=== PATIENT | male | born 1945 | race Caucasian/White ===

== ENCOUNTER 2021-10-07 11:21 | Emergency (ER) | payer MEDICARE, BC ==
[2021-10-07 13:25] LABS: Bilirubin Negative (Negative); Blood, Urine Negative (Negative); Clarity Clear (Clear); Glucose, Urine (Dipstick) 500 mg/dL (Negative); Ketone, Urine 20 mg/dL (Negative); Leukocyte Negative Leu/uL (Negative); Nitrite Negative (Negative); Protein, Urine (Dipstick) Negative (Neg-Trace); Specific Gravity, Urine 1.015 (1.002-1.036); Urobilinogen Normal mg/dL (Less than 2)
[2021-10-07] MEDS ORDERED: Fentanyl 100 MCG/2 ML VIAL ONE (13:27)
[2021-10-07 13:46] LABS: #Basophils 0.1 thou/uL (0.0-0.2); #Lymphocytes 1.3 thou/uL (1.20-3.40); #Monocytes 0.6 thou/uL (0.11-0.59); #Neutrophils 7.2 thou/uL (1.40-6.50); %Basophils 0.7 % (0.0-1.0); %Eosinophils 0.2 % (0.0-10.0); %Monocytes 6.4 % (0.0-10.0); %Neutrophils 78.7 % (42.0-75.0); Hemoglobin 18.7 g/dL (14.0-18.0); Mean Corpuscular HGB CONC 33.1 g/dL (32.0-36.0); Mean Corpuscular Hemoglobin 35.2 pg (27.0-31.0); Mean Platelet Volume 7.7 fL (7.4-10.4); Platelet Count 138 thou/uL (130-400); RBC Distribution Width 12.4 % (11.5-14.5); Red Blood Cell (RBC) Count 5.32 mill/uL (4.70-6.10); White Blood Cell (WBC) Count 9.2 thou/uL (4.8-10.8)
[2021-10-07] MEDS ORDERED: ISOVUE-370 76%-LOCM 1 ML ONE (13:51)
[2021-10-07 13:57] LABS: MDiff Complete? YES; Macrocytosis SLIGHT = 6-15 cells (100X) (0-5/hpf); Platelet Morphology Comment Appears Adequate
[2021-10-07 13:58] LABS: Hemoglobin A1c 10.4 % (4.0-6.0)
[2021-10-07 14:08] LABS: ALT (SGPT) 20 U/L (8-55); AST (SGOT) 23 U/L (5-34); Albumin 4.7 g/dL (3.4-4.8); Alkaline Phosphatase 68 U/L (40-110); Anion Gap 19 mmol/L (10-20); BUN (Urea Nitrogen) 30 mg/dL (8.4-25.7); Bilirubin, Total 1.5 mg/dL (0.2-1.2); CK (CPK) 400 U/L (30-200); Calc. Creatinine Clearance 0 mL/min (70-130); Calcium 9.9 mg/dL (7.8-10.44); Carbon Dioxide 26 mmol/L (23-31); Chloride 100 mmol/L (98-107); Glucose 184 mg/dL (83-110); Lipase Less than 4 U/L (8-78); Potassium 3.7 mmol/L (3.5-5.1); Protein, Total 8.7 g/dL (5.8-8.1); Sodium 141 mmol/L (136-145)
== END 2021-10-07 16:13 | disposition home or self-care (01) ==
LOC: ERS 11:21
DX: M54.41 Lumbago with sciatica, right side (principal); E86.0 Dehydration; E11.65 Type 2 diabetes mellitus with hyperglycemia; Z79.899 Other long term (current) drug therapy; Z79.84 Long term (current) use of oral hypoglycemic drugs; Z79.01 Long term (current) use of anticoagulants
CPT/HCPCS: 74177; 80053; 81003; 82010; 82550; 83036; 83690; 83880; 84484; 85025; 93005; 96374; J3010; Q9966

== ENCOUNTER 2022-11-22 22:55 | Emergency (ER) | payer MEDICARE, BC ==
[2022-11-22 23:57] LABS: #Eosinphils 0.1 thou/uL (0.0-0.7); #Monocytes 0.5 thou/uL (0.11-0.59); #Neutrophils 4.2 thou/uL (1.40-6.50); %Basophils 0.7 % (0.0-1.0); %Lymphocytes 20.3 % (21.0-51.0); %Monocytes 7.9 % (0.0-10.0); %Neutrophils 68.9 % (42.0-75.0); Hematocrit 44.5 % (42.0-52.0); Hemoglobin 15.1 g/dL (14.0-18.0); Mean Corpuscular HGB CONC 33.9 g/dL (32.0-36.0); Mean Corpuscular Hemoglobin 34.4 pg (27.0-31.0); Mean Corpuscular Volume 101.4 fl (78.0-98.0); Mean Platelet Volume 10.5 fL (7.4-10.4); Platelet Count 122 10x3/uL (130-400); RBC Distribution Width 13.2 % (11.5-14.5); Red Blood Cell (RBC) Count 4.39 mill/uL (4.70-6.10); White Blood Cell (WBC) Count 6.1 10x3/uL (4.8-10.8)
[2022-11-23 00:28] LABS: ALT (SGPT) 16 U/L (8-55); AST (SGOT) 17 U/L (5-34); Albumin 3.6 g/dL (3.4-4.8); Alkaline Phosphatase 62 U/L (40-110); Anion Gap 14 mmol/L (10-20); BUN (Urea Nitrogen) 17 mg/dL (8.4-25.7); Bilirubin, Total 0.8 mg/dL (0.2-1.2); Calc. Creatinine Clearance 0 mL/min (70-130); Calcium 8.9 mg/dL (7.8-10.44); Carbon Dioxide 21 mmol/L (23-31); Chloride 103 mmol/L (98-107); Estimated GFR 82; Globulin 3.2 g/dL (2.4-3.5); Glucose 267 mg/dL (83-110); Potassium 4.1 mmol/L (3.5-5.1); Protein, Total 6.8 g/dL (5.8-8.1); Sodium 134 mmol/L (136-145)
[2022-11-23] MEDS ORDERED: Bupivacaine PF 0.5% 30 ML VIAL SC SCH (00:30)
[2022-11-23] MEDS ORDERED: Lidocaine 1% w/Epinephrine 1:100K 20 ML VIAL ONE (00:34)
[2022-11-23] MEDS ORDERED: Bacitracin 1 PK ONE (00:53)
== END 2022-11-23 02:35 | disposition home or self-care (01) ==
LOC: ERS 22:55
DX: S01.81XA Laceration without foreign body of other part of head, initial encounter (principal); R55 Syncope and collapse; E11.9 Type 2 diabetes mellitus without complications; W18.30XA Fall on same level, unspecified, initial encounter
CPT/HCPCS: 12014; 36415; 70450; 80053; 84484; 85025; 93005; S0020

== ENCOUNTER 2023-03-21 05:32 | Emergency (ER) | payer MEDICARE, BC ==
[2023-03-21] MEDS ORDERED: Lidocaine 1% w/Epinephrine 1:100K 20 ML VIAL ONE (06:17)
== END 2023-03-21 06:58 | disposition left against medical advice (07) ==
LOC: ERS 05:32
DX: S01.81XA Laceration without foreign body of other part of head, initial encounter (principal); I95.1 Orthostatic hypotension; E11.9 Type 2 diabetes mellitus without complications; Z53.29 Procedure and treatment not carried out because of patient's decision for other reasons; W22.8XXA Striking against or struck by other objects, initial encounter
CPT/HCPCS: 12013; 99283

== ENCOUNTER 2023-03-26 12:58 | Outpatient (CLI) | payer MEDICARE, BC | END 2023-03-26 12:59 | disposition home or self-care (01) | LOC: CT 12:58 | PROVIDERS: ATTEND Family Medicine | DX: S09.90XA Unspecified injury of head, initial encounter (principal) | CPT/HCPCS: 70450 ==